=== PATIENT | male | born 1975 | race Caucasian/White ===

== ENCOUNTER 2018-03-01 14:13 | Emergency (ER) | payer OTHER ==
[2018-03-01 14:21] VITALS: BP 155/95; PULSE 83; RESP 20; TEMP 97.1
[2018-03-01] MEDS ORDERED: LIDOCAINE 1%-EPI 1:100,000 30 ML VIAL SQ STA (14:32)
[2018-03-01] MEDS ORDERED: DOXYCYCLINE 50 MG CAP PO STA (14:33)
--- NOTE | 2018-03-01 14:37 | ED ---
Animal Bite HPI - General Source: patient, RN notes reviewed, old records reviewed Mode of arrival: ambulatory Limitations: no limitations <Rekha Quan - Last Filed: 03/01/18 15:19> <Marcos Urena - Last Filed: 03/02/18 14:12> - General Chief Complaint: Animal Bite Stated Complaint: Dog Bite Time Seen by Provider: 03/01/18 14:22 - History of Present Illness Initial Comments: This Patient is a 42-year-old male presents the emergency department today chief complaint of a dog bite to the right wrist. He was standing at his neighbor's fence when the neighbors dog jumped up and bit him. It is an German mastiff. The neighbor is here in the emergency department reports that the dog is up-to-date on vaccinations. The Patient reports that he has had his tetanus shot within the last 5-7 years. He does not want an updated tetanus at this time. He does report some pain with range of motion of the wrist. He is right-handed. (Rekha Quan) - Related Data Previous Rx's Medication Instructions Recorded Doxycycline [Vibramycin] 100 mg PO Q12HR #14 03/01/18 Allergies Allergy/AdvReac Type Severity Reaction Status Date / Time Penicillins Allergy Unknown Verified 03/01/18 14:21 Sulfa (Sulfonamide Allergy Unknown Verified 03/01/18 14:21 Antibiotics) Review of Systems ROS Other: All systems not noted in ROS Statement are negative. <Rekha Quan - Last Filed: 03/01/18 15:19> ROS Other: All systems not noted in ROS Statement are negative. <Marcos Urena - Last Filed: 03/02/18 14:12> ROS Statement: Those systems with pertinent positive or pertinent negative responses have been documented in the HPI. Past Medical History Past Medical History: Hypertension History of Any Multi-Drug Resistant Organisms: None Reported Past Surgical History: Orthopedic Surgery Past Psychological History: Anxiety, Depression Smoking Status: Current every day smoker Past Alcohol Use History: None Reported Past Drug Use History: None Reported <Rekha Quan - Last Filed: 03/01/18 15:19> General Exam Limitations: no limitations General appearance: alert Head exam: Present: atraumatic, normocephalic, normal inspection Eye exam: Present: normal appearance, PERRL, EOMI. Absent: scleral icterus, conjunctival injection, periorbital swelling ENT exam: Present: normal exam, mucous membranes moist Neck exam: Present: normal inspection. Absent: tenderness, meningismus, lymphadenopathy Respiratory exam: Present: normal lung sounds bilaterally. Absent: respiratory distress, wheezes, rales, rhonchi, stridor Cardiovascular Exam: Present: regular rate, normal rhythm, normal heart sounds. Absent: systolic murmur, diastolic murmur, rubs, gallop, clicks GI/Abdominal exam: Present: soft, normal bowel sounds. Absent: distended, tenderness, guarding, rebound, rigid Extremities exam: Present: normal inspection, full ROM, normal capillary refill , other (Patient has evidence of 2 separate 2 cm lacerations over the right wrist. One over the dorsal aspect and one over the anterior aspect of the wrist. Patient's wounds are for apart. They are bleeding.). Absent: tenderness, pedal edema, joint swelling, calf tenderness Right Upper Arm exam: Present: normal inspection, full ROM Elbow exam: Present: normal inspection, full ROM Forearm Wrist exam: Present: full ROM. Absent: normal inspection (Patient has 2 separate lacerations over the right wrist each measuring approximately 1-2 cm. Full range of motion of the wrist. Patient is neurovascularly intact.) Hand Wrist exam: Present: normal inspection, full ROM Back exam: Present: normal inspection, full ROM Neurological exam: Present: alert, oriented X3, CN II-XII intact Psychiatric exam: Present: normal affect, normal mood Skin exam: Present: warm, dry, intact, normal color. Absent: rash <Rekha Quan - Last Filed: 03/01/18 15:19> <Marcos Urena - Last Filed: 03/02/18 14:12> - General Exam Comments Initial Comments: Well-appearing 42-year-old male. Alert and oriented. No acute distress. ( Rekha Quan) Vital Signs 03/01/18 14:18 Temperature 97.1 F L Pulse Rate 83 Respiratory 20 Rate Blood Pressure 155/95 O2 Sat by Pulse 98 Oximetry Procedures - Laceration Laceration #1 Site: upper extremity (R wrist dorsum) Size (cm): 1 Description: linear Depth: simple, single layer Anesthesia Technique: local infiltration Amount (mls): 2 Pre-repair: wound explored, irrigated extensively Type of Sutures: vicryl Size of Sutures: 5-0 Number of Sutures: 2 Technique: simple, interrupted Patient Tolerated Procedure: well, no complications Laceration #2 Site: upper extremity (R wrist antrierior aspect ) Size (cm): 2 Description: linear Depth: simple, single layer Anesthetic Used: lidocaine 1% Anesthesia Technique: local infiltration Amount (mls): 3 Pre-repair: wound explored Type of Sutures: nylon Size of Sutures: 5-0 Number of Sutures: 2 Technique: simple, interrupted Patient Tolerated Procedure: well, no complications <Rekha Quan - Last Filed: 03/01/18 15:19> Medical Decision Making - Radiology Data Radiology results: report reviewed <Rekha Quan - Last Filed: 03/01/18 15:19> <Marcos Urena - Last Filed: 03/02/18 14:12> - Medical Decision Making 42-year-old male presents after a dog bite. He is here because his neighbor's dog bit him. His tetanus is up-to-date dogs rabies is up-to-date. He had 2 separate lacerations over the right wrist. These were thoroughly irrigated and loosely closed with 2 sutures each. I discussed putting the Patient on doxycycline as he is ALLERGIC to penicillin. Given the initial dose in the emergency department. Discussed monitoring for infection including redness swelling or drainage. Discussed if this area becomes red or swollen she return for IV antibiotics. Patient agrees to treatment plan will comply. Return parameters were discussed. (Rekha Quan) Resident/PA attestation: I, Dr. Marcos Urena, personally saw and examined the patient. I have reviewed and agree with the resident/PA findings, including all diagnostic interpretations and treatment plans as written unless otherwise stated. I was present for the mcqueen portions of any procedures performed and inclusive time noted for any critical care statement. Patient is a 42-year-old male who presents after being bit in the upper extremity by a friend's dog. Friend presents to the emergency room with patient. Dog is allegedly up-to-date with vaccinations. Patient presented immediately to emergency room after allegedly incident. Wounds were irrigated and lacerations were loosely closed with sutures. Patient given antibiotics. He is told to follow up with his primary care physician. Patient told to seek medical attention should he develop findings to suggest wound infection including erythema, induration, worsening pain or fluctuance. Patient is understandable and agreeable. He is told to follow-up with his primary care physician for outpatient management of dog bite. (Marcos Urena) - Radiology Data Wrist x-ray shows no evidence of any fracture dislocation. (Rekha Quan) Disposition Is patient prescribed a controlled substance at d/c from ED?: No When asked, does pt state using other controlled substances?: No If prescribed controlled substance>3 days was MAPS reviewed?: No If opioid is for acute pain is fill amount 7 days or less?: No If Rx opioid, was Start Talking consent form obtained?: No Time of Disposition: 14:53 <Rekha Quan - Last Filed: 03/01/18 15:19> <Marcos Urena - Last Filed: 03/02/18 14:12> Clinical Impression: Dog bite Disposition: HOME SELF-CARE Condition: Good Instructions: Animal Bite (ED) Additional Instructions: Patient advised to follow-up with primary care physician. Take antibiotics as prescribed. Return to emergency department if any alarming signs or symptoms occur. Please return to the emergency room in 8-10 days to have sutures removed. Please leave wound covered for the first 24-48 hours and then leave open to air after that time. Please use clean soap and water to clean the suture area to prevent scabbing over the top of your sutures. Please watch for any signs of infection which may include but not limited to increased pain, swelling, redness , fever or chills. Please return to the emergency room if any signs of infection do occur. Please return to the emergency room for any other concerns or complications. Prescriptions: Doxycycline [Vibramycin] 100 mg PO Q12HR #14 Referrals: None,Stated [REFERRING] - 1-2 days Morelia Jiang MD [STAFF PHYSICIAN] - 1-2 days
--- NOTE | 2018-03-01 14:52 | XR ---
Right wrist HISTORY: Puncture wounds, dog bite, pain 4 views of the right wrist Bone mineralization, joint spaces and alignment are maintained. No radiopaque foreign body. IMPRESSION: No fracture or dislocation.
== END 2018-03-01 15:35 | disposition home or self-care (01) ==
LOC: EC 14:13
DX: S61.511A Laceration without foreign body of right wrist, initial encounter (principal); F17.200 Nicotine dependence, unspecified, uncomplicated; Z88.0 Allergy status to penicillin; Z88.2 Allergy status to sulfonamides; W54.0XXA Bitten by dog, initial encounter; Y92.89 Other specified places as the place of occurrence of the external cause
CPT/HCPCS: 12002; 99284

== ENCOUNTER 2018-05-19 19:24 | Emergency (ER) | payer OTHER ==
[2018-05-19 19:27] VITALS: BP 159/83; PULSE 95; RESP 18; TEMP 98.2
--- NOTE | 2018-05-19 20:03 | XR ---
EXAMINATION TYPE: XR ankle complete LT DATE OF EXAM: 05/19/2018 COMPARISON: NONE HISTORY: Ankle pain foot pain TECHNIQUE: 3 views FINDINGS: There is soft tissue swelling over the lateral malleolus. Ankle mortise is anatomic. There is a 2 mm calcification at the tip of the medial malleolus. IMPRESSION: Soft tissue swelling. Possible small chip fracture at the medial malleolus. Small plantar calcaneal spur.
--- NOTE | 2018-05-19 20:04 | XR ---
EXAMINATION TYPE: XR foot complete LT DATE OF EXAM: 05/19/2018 COMPARISON: NONE HISTORY: Foot pain TECHNIQUE: 3 views FINDINGS: There is small plantar calcaneal spur. Metatarsals appear intact. There is narrowing and sp urring at the first MP joint. IMPRESSION: Mild spurring. No fracture seen. Mild degenerative changes.
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
== END 2018-05-19 20:30 | disposition home or self-care (01) ==
LOC: EC 19:24
DX: S82.52XA Displaced fracture of medial malleolus of left tibia, initial encounter for closed fracture (principal); F17.200 Nicotine dependence, unspecified, uncomplicated; Z88.0 Allergy status to penicillin; Z88.2 Allergy status to sulfonamides; X50.1XXA Overexertion from prolonged static or awkward postures, initial encounter; Y93.39 Activity, other involving climbing, rappelling and jumping off
CPT/HCPCS: 29515; 99283

== ENCOUNTER 2019-01-31 21:31 | Emergency (ER) | payer OTHER ==
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
== END 2019-01-31 23:30 | disposition expired ==
LOC: EC 21:31
DX: I46.8 Cardiac arrest due to other underlying condition (principal); S02.0XXA Fracture of vault of skull, initial encounter for closed fracture; S40.812A Abrasion of left upper arm, initial encounter; F17.200 Nicotine dependence, unspecified, uncomplicated; Z88.0 Allergy status to penicillin; Z88.2 Allergy status to sulfonamides; V47.5XXA Car driver injured in collision with fixed or stationary object in traffic accident, initial encounter; W40.9XXA Explosion of unspecified explosive materials, initial encounter
CPT/HCPCS: 92950; 99285